=== PATIENT | female | born 1935 | race Caucasian/White ===

== ENCOUNTER 2016-06-26 11:44 | Inpatient (IN) | payer OTHER, BC ==
[2016-06-26 11:49] VITALS: BMI 25.0
--- NOTE | 2016-06-26 12:06 | PDOC ---
History of Present Illness <Paolo Lyn - Last Filed: 06/26/16 15:08> - History of Present Illness Initial Comments: 06/26/16 15:52 Chief complaint: Nausea and vomiting History of present illness: Patient has had a mild URI for several days, yesterday began to feel nauseated and vomited last night, continuing this morning. No diarrhea. Normal bowel movement yesterday. No hematemesis melena or bloody stool. Review of systems: No chest pain, shortness of breath, abdominal pain, diarrhea , hematemesis, melena, bloody stool, visual or focal neurologic symptoms, lightheadedness, dizziness, vertigo, visual or focal neurologic symptoms, unsteadiness of gait. She does admit "a sour taste" in her mouth. Past medical history: Mild hypertension maintained on atenolol/chlorthalidone. Glaucoma on eye drops. 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 Breast cancer with lumpectomy on the right, chemotherapy and radiation, 8 years ago followed closely without signs of recurrence History of intermittent hyponatremia in the past Social history: Has been mildly depressed since the of her one year ago, but no tobacco alcohol or other [employer] drugs. No pain killers. Lives with family, who care for her well Family history: Reviewed and noncontributory including GI disease, early coronary disease, or cancer. Physical exam: Alert oriented well-developed well-nourished no acute distress cheerful and cooperative Afebrile, vital signs normal No pallor or icterus. PERRLA, fundi benign, ENT clear Neck supple without bruit mass or nodes Lungs clear CV regular without murmur rub or gallop Abdomen nondistended, normal bowel sounds. Soft without masses tenderness organomegaly. No CVAT Neurological C2 to 12 intact. Strength full and symmetric. No focal sensory or motor deficits. Gait stable and unimpaired Skin clear, no rash, adequate turgor and what mucous membranes Extremities no CCE Impression: Probable viral gastroenteritis, rule out dehydration, electrolyte abnormality. Plan: CBC chemistries intravenous fluid Zofran for nausea Protonix for dyspepsia. Further medical evaluation depending on results <Yannick Walden - Last Filed: 06/26/16 15:58> - General Chief Complaint: Nausea/Vomiting Stated Complaint: weak,vomit,cold symptoms Time Seen by Provider: 06/26/16 12:04 Past History <Paolo Lyn - Last Filed: 06/26/16 15:08> - Past Medical History Anemia: No Asthma: No Cancer: Yes (RT BREAST) Cardiac Disorders: No CVA: No COPD: No CHF: No Dementia: No Diabetes: No GI Disorders: Yes (STOMACH CA, DIVERTICULOSIS HX HPYLORI) Disorders: No HTN: Yes Hypercholesterolemia: Yes Liver Disease: No Seizures: No Thyroid Disease: No - Surgical History Abdominal Surgery: Yes - Psycho/Social/Smoking Cessation Hx Anxiety: No Suicidal Ideation: No Smoking Status: No Smoking History: Unknown if ever smoked Have you smoked in the past 12 months: No Number of Cigarettes Smoked Daily: 0 Information on smoking cessation initiated: No Hx Alcohol Use: No Drug/Substance Use Hx: No Substance Use Type: None Hx Substance Use Treatment: No <Yannick Walden - Last Filed: 06/26/16 15:58> - Past Medical History Allergies/Adverse Reactions: Allergies Allergy/AdvReac Type Severity Reaction Status Date / Time No Known Allergies Allergy Verified 06/26/16 11:45 Home Medications: Ambulatory Orders Aspirin Coated [Ecotrin -] 81 mg PO DAILY 09/05/13 Atenolol/Chlorthalidone [Tenoretic 50/25 Tablet] 1 each PO DAILY 09/05/13 Cholecalciferol (Vitamin D3) [Vitamin D3] 1,000 unit PO DAILY 09/05/13 Multivit-Min/FA/Lycopene/Lut [Centrum Silver Tablet] 1 each PO DAILY 09/05/13 Potassium Citrate 10 meq PO DAILY 11/06/14 Timolol [Betimol] 10 ml OP DAILY 11/06/14 *Physical Exam - Vital Signs Last Vital Signs Temp Pulse Resp BP Pulse Ox 98.4 F 60 20 133/65 100 06/26/16 13:13 06/26/16 13:13 06/26/16 13:13 06/26/16 13:13 06/26/16 13:13 <Paolo Lyn - Last Filed: 06/26/16 15:08> - Vital Signs Last Vital Signs Temp Pulse Resp BP Pulse Ox 98.4 F 62 20 159/68 100 06/26/16 11:45 06/26/16 11:45 06/26/16 11:45 06/26/16 11:45 06/26/16 11:45 <Yannick Walden - Last Filed: 06/26/16 15:58> ED Treatment Course - LABORATORY CBC & Chemistry Diagram: 06/26/16 12:34 06/26/16 12:34 - ADDITIONAL ORDERS Additional order review: Laboratory Results 06/26/16 06/26/16 06/26/16 14:23 12:34 12:34 INR Sodium 118 L* Potassium 2.6 L* D Chloride 81 L Carbon Dioxide 24 Anion Gap 13 BUN 13 Creatinine 0.6 Creat Clearance w eGFR > 60 Random Glucose 233 H D Calcium 8.4 Total Bilirubin 0.8 AST 22 ALT 17 Alkaline Phosphatase 52 Creatine Kinase 64 Troponin I < 0.03 L Total Protein 6.8 Albumin 3.5 Urine Color Yellow Urine Appearance Clear Urine pH 7.5 Ur Specific [place] 1.015 Urine Protein Negative Urine Glucose (UA) 1+ H Urine Ketones 1+ H Urine Blood Trace H Urine Nitrite Negative Urine Bilirubin Negative Urine Urobilinogen 0.2 e.u/dl Ur Leukocyte Esterase Negative 06/26/16 12:34 INR 1.13 Sodium Potassium Chloride Carbon Dioxide Anion Gap BUN Creatinine Creat Clearance w eGFR Random Glucose Calcium Total Bilirubin AST ALT Alkaline Phosphatase Creatine Kinase Troponin I Total Protein Albumin Urine Color Urine Appearance Urine pH Ur Specific [place] Urine Protein Urine Glucose (UA) Urine Ketones Urine Blood Urine Nitrite Urine Bilirubin Urine Urobilinogen Ur Leukocyte Esterase 06/26/16 12:34 RBC 4.58 D MCV 82.7 MCHC 33.9 RDW 14.6 MPV 9.4 D Neutrophils % 74.7 D Lymphocytes % 17.7 D Monocytes % 7.1 Eosinophils % 0.2 Basophils % 0.3 - Medications Given in the ED: ED Medications Discontinued Medications Generic Name Dose Route Start Last Admin Trade Name Freq PRN Reason Stop Dose Admin Sodium Chloride 1,000 mls @ 1,000 mls/hr 06/26/16 13:09 06/26/16 13:12 Normal Saline - IV 06/26/16 14:08 1,000 mls/hr ASDIR STA Administration Ondansetron HCl 4 mg 06/26/16 12:45 06/26/16 12:49 Zofran Injection IVPUSH 06/26/16 12:46 4 mg NOW ONE Administration <Paolo Lyn - Last Filed: 06/26/16 15:08> - LABORATORY CBC & Chemistry Diagram: 06/26/16 12:34 06/26/16 12:34 <Yannick Walden - Last Filed: 06/26/16 15:58> Medical Decision Making - Medical Decision Making 06/26/16 15:08 Dr. Tan Gomes was consulted regarding the patient at 2:57pm [phone] <Paolo Lyn - Last Filed: 06/26/16 15:08> - Medical Decision Making 06/26/16 14:54 Sodium 118, potassium 2.6. Electrolyte abnormalities most likely due to acute illness, vomiting, decreased fluid intake, and chronic diuretic therapy. Dr. Justin Chacon contacted by phone. Case discussed, as well as laboratory abnormalities. She will admit patient for further intravenous therapy and monitoring Attempts to contact traditional maori health practitioner for consultation in progress 06/26/16 15:57 Dr Gomes, renal consult, was contacted. Case was discussed, labs were reviewed, will see the patient in consultation tonight. <Yannick Walden - Last Filed: 06/26/16 15:58> *DC/Admit/Observation/Transfer <Paolo Lyn - Last Filed: 06/26/16 15:08> - Discharge Dispostion Admit: Yes <Yannick Walden - Last Filed: 06/26/16 15:58> Diagnosis at time of Disposition: Hyponatremia, Hypokalemia
[2016-06-26] MEDS ORDERED: ONDANSETRON 4 MG/2 ML VIAL IVPUSH ONE (12:45)
[2016-06-26] MEDS ORDERED: ONDANSETRON 4 MG/2 ML VIAL ONE (12:49)
[2016-06-26 12:59] LABS: INR 1.13 (0.82-1.09); PROTHROMBIN TIME (PATIENT) 12.6 SEC (10.2-13.0)
[2016-06-26 13:04] LABS: ALBUMIN 3.5 g/dl (3.5-5.0); ALK PHOS 52 U/L (32-92); ANION GAP 13 (8-16); BILIRUBIN,TOTAL 0.8 mg/dl (0.2-1.0); CALCIUM 8.4 mg/dl (8.4-10.2); CO2 24 mmol/L (22-28); CPK(DFH) 64 IU/L (26-140); CREATININE 0.6 mg/dl (0.6-1.3); GLUCOSE,RANDOM 233 mg/dl (74-106); SGOT/AST 22 U/L (10-42); SGPT/ALT 17 U/L (10-40); TOT PROT 6.8 g/dl (6.4-8.3)
[2016-06-26] MEDS ORDERED: SODIUM CHLORIDE 1,000 ML IV STA (13:09)
[2016-06-26] MEDS ORDERED: KCL 10 MEQ IVPB 100 ML IVPB SCH (13:15)
[2016-06-26] MEDS ORDERED: KCL 10 MEQ IVPB 200 ML IVPB ONE (13:17)
[2016-06-26 13:28] LABS: BASOPHIL 0.3 % (0-2.0); EOSINOPHIL 0.2 % (0-4.5); MCHC 33.9 g/dl (32.0-36.0); MEAN CELL VOLUME 82.7 fl (80-96); MEAN PLT VOLUME 9.4 fl (7.5-11.1); NEUTROPHILS 74.7 % (42.8-82.8); PLATELET COUNT 129 K/MM3 (134-434); RDW 14.6 % (11.6-15.6); TROPONIN I (DFP) < 0.03 ng/ml (0.03-0.50); WHITE BLOOD COUNT 5.3 K/mm3 (4.0-10.0)
[2016-06-26 14:30] LABS: PH,URINE 7.5 (4.5-8); URINE APPEARANCE Clear; URINE BILIRUBIN Negative (NEGATIVE); URINE BLOOD TRACE (NEGATIVE); URINE COLOR YELLOW; URINE GLUCOSE (UA) 1+ (NEGATIVE); URINE KETONE 1+ (NEGATIVE); URINE LEUK ESTERASE Negative (NEGATIVE); URINE NITRITE Negative (NEGATIVE); URINE PROTEIN Negative (NEGATIVE); URINE UROBILINOGEN 0.2 E.U/dl (0.2-1.0)
[2016-06-26] MEDS ORDERED: PANTOPRAZOLE SODIUM 40 MG in SODIUM CHLORIDE 100 ML IVPB ONE (14:40)
[2016-06-26] MEDS ORDERED: PANTOPRAZOLE SODIUM 40 MG VIAL ONE (15:31)
[2016-06-26 15:55] LABS: URINE WBC 0-2 (3-5)
[2016-06-26] MEDS ORDERED: SODIUM BICARBONATE 2.4 MEQ/5 ML SDVIAL ONE (16:24)
[2016-06-26] MEDS ORDERED: POTASSIUM CHLORIDE ORAL LIQUID 20 MEQ/15 ML PO ONE (16:42)
--- NOTE | 2016-06-26 16:50 | CONSULT ---
Consult - text type - Consultation Consultation Note: Renal Consult for Hyponatremia. This is a 80 year old woman with PMhx of Breast Ca s/p lumpectomy, Gastric Ca s/ p partial gastrectomy, Hypertension who presented with complaints of weakness, dizziness, elevated BP with N/V and found to have Na of 118 and K of 2.6. Pt started experiencing sympotms yesterday and took additional BP meds. Drank about 1L of water yesterday. Was on Amlodipine-Chlorthalidone at home. No confuison, lethargy, weakness, seizures. PMhx: as above Allergies: NKDA Family hx: NC Social Hx: NO T/A/D ROS: as per HPI Home Meds: Home Medications Medication Instructions Recorded Aspirin Coated [Ecotrin -] 81 mg PO DAILY 09/05/13 Atenolol/Chlorthalidone [Tenoretic 1 each PO DAILY 09/05/13 50/25 Tablet] Cholecalciferol (Vitamin D3) 1,000 unit PO DAILY 09/05/13 [Vitamin D3] Multivit-Min/FA/Lycopene/Lut 1 each PO DAILY 09/05/13 [Centrum Silver Tablet] Potassium Citrate 10 meq PO DAILY 11/06/14 Timolol [Betimol] 10 ml OP DAILY 11/06/14 Vital Signs Temperature 98.4 F 06/26/16 13:13 Pulse Rate 60 06/26/16 13:13 Respiratory Rate 20 06/26/16 13:13 Blood Pressure 133/65 06/26/16 13:13 O2 Sat by Pulse Oximetry (%) 100 06/26/16 13:13 Gen: NAD, awake and alert. HEENT: NC/AT, MMM, No JVD, Neck Supple CVS: RRR, No M/R Lungs: CTA, No Rales or wheeze Abd: soft NT/ND Ext: No edema, clubbing or cyanosis : No bladder distension CBC, BMP 06/26/16 12:34 06/26/16 12:34 Current Medications Potassium Chloride (Potassium Chloride Oral Liquid) 40 meq PO ONCE ONE Stop: 06/26/16 16:43 A/P 80 year old woman with PMhx of Breast Ca s/p lumpectomy, Gastric Ca s/p partial gastrectomy, Hypertension who presented with complaints of weakness, dizziness, elevated BP with N/V and found to have Na of 118 and K of 2.6. #Hyponatremia Likely related to Thiazide like diuretic + Nausea however need to r/o SIADH given Ca history Check Urine OSM, Urine Na, Serum OSM, Uric Acid, TSH, AM Cortisol s/p 1`L of NS in the ED Repeat BMP now to access for improvement in Na Goal rate of correction is 8 in 24 hours Free water restriction of 1L daily No indication for 3% saline #Hypokalemia from diuretic +/- GI losses s/p KCL 10meq IV in the ED Give KCL 40 PO x 1 Repeat K Goal K ~4 Check Mg levels #Nausea/Vomiting ? related to hyponatremia vs. primary Gi issue monitor symptoms zofran PRN #Hypertension BP ok now keep off diuretics at this time goal BP < 150/90 Thank you for this referral Will follow Tan Gomes DO
[2016-06-26 18:49] LABS: ALBUMIN 3.2 g/dl (3.5-5.0); ALK PHOS 47 U/L (32-92); ANION GAP 12 (8-16); BILIRUBIN,TOTAL 0.5 mg/dl (0.2-1.0); CALCIUM 7.9 mg/dl (8.4-10.2); CO2 22 mmol/L (22-28); CREATININE 0.5 mg/dl (0.6-1.3); GLUCOSE,RANDOM 242 mg/dl (74-106); MAGNESIUM 1.3 mg/dL (1.8-2.4); SGOT/AST 26 U/L (10-42); SGPT/ALT 15 U/L (10-40); TOT PROT 6.2 g/dl (6.4-8.3); URIC ACID 3.4 mg/dl (2.6-7.2)
[2016-06-26] MEDS ORDERED: diphenhydrAMINE HCL 25 MG CAPSULE (FP) PO PRN (19:22)
[2016-06-26] MEDS ORDERED: ONDANSETRON 4 MG/2 ML VIAL IVPB PRN (19:22)
[2016-06-26] MEDS ORDERED: ACETAMINOPHEN 325 MG TABLET (FP) PO PRN (19:22)
[2016-06-26] MEDS ORDERED: SODIUM CHLORIDE 1,000 ML IV SCH (20:15)
[2016-06-26 20:25] LABS: AMYLASE 41 U/L (25-125)
[2016-06-26] MEDS ORDERED: SODIUM CHLORIDE 1,000 ML with POTASSIUM CHLORIDE 20 MEQ IV SCH (20:30)
[2016-06-26 20:35] LABS: OSMOLALITY,SERUM 260 mosm/kg (278-305)
[2016-06-26] MEDS: HEPARIN NA (PORCINE) 5,000 UNITS/ML 1ML VIAL SQ SCH (22:33)
[2016-06-26] MEDS: PANTOPRAZOLE 40 MG TABLET (FP) PO SCH (22:33)
--- NOTE | 2016-06-26 22:36 | HP ---
Admitting History and Physical - Admission Chief Complaint: Weak and lightheaded post N and V x 2 onset 1 day pre admission History of Present Illness: Daughter at bedside asiisting as intermittent stucco mason ; 80 F w Hx Mild Htn reports on day pre admission was not feeling well and noticed BP a little hi ( has monitor). She had some stomache discomfort followed w Nausea and 2 episodes of vomiting. She decided to come to ED for treatment. In ED pts Vitals were Benign but Na was 188 and K+ 2.6. Her K was suplemented. She has been admitted to [facility] for wkup and management. History Source: Patient, Family Member Limitations to Obtaining History: No Limitations - Past Medical History Cardiovascular: Yes: HTN ...LMP Comment: 80 YEAR OLD ...: No Heme/Onc: Yes: Other (R Breast cancer Post Lumpectomy Chemo and Radio 2006; Stomache cancer post partial gastrectomy 2011.) ENT: Yes: Other (Hard of Hearing) Additional Past Medical History: Hyponatremia Episode in 2014 - admitted and treated w NEG wkup. - Past Surgical History Additional Past Surgical History: Rt Lumpectomy; Partial Gastrectomy ; T&A ; CS x 2 - Advance Directives Advance Directives: Yes: Health Care Proxy - Smoking History Smoking history: Unknown if ever smoked Have you smoked in the past 12 months: No Aproximately how many cigarettes per day: 0 - Alcohol/Substance Use Hx Alcohol Use: No Home Medications - Allergies Allergies/Adverse Reactions: Allergies Allergy/AdvReac Type Severity Reaction Status Date / Time No Known Allergies Allergy Verified 06/26/16 11:45 - Home Medications Home Medications: Ambulatory Orders Aspirin Coated [Ecotrin -] 81 mg PO DAILY 09/05/13 Atenolol/Chlorthalidone [Tenoretic 50/25 Tablet] 1 each PO DAILY 09/05/13 Cholecalciferol (Vitamin D3) [Vitamin D3] 1,000 unit PO DAILY 09/05/13 Multivit-Min/FA/Lycopene/Lut [Centrum Silver Tablet] 1 each PO DAILY 09/05/13 Potassium Citrate 10 meq PO DAILY 11/06/14 Timolol [Betimol] 10 ml OP DAILY 11/06/14 Review of Systems Findings/Remarks: SEE HPI Physical Examination Vital Signs: Vital Signs Temperature 98.1 F 06/26/16 18:19 Pulse Rate 53 L 06/26/16 18:19 Respiratory Rate 17 06/26/16 18:19 Blood Pressure 108/64 06/26/16 18:19 O2 Sat by Pulse Oximetry (%) 99 06/26/16 18:19 Constitutional: Yes: No Distress, Calm HENT: Yes: Other (Speaking in LOUD Tones) Neck: Yes: WNL, Supple Cardiovascular: Yes: Regular Rate and Rhythm, Bruit (no), JVD (no), Murmur ( mild 2/6 Base no rad) Respiratory: Yes: Regular, CTA Bilaterally Gastrointestinal: Yes: Normal Bowel Sounds, Soft, Abdomen, Obese, Tenderness ( NONE) ...Rectal Exam: Yes: Deferred Extremities: Yes: WNL Edema: No Peripheral Pulses: Left Doralis Pedis: 2+, Right Dorsalis Pedis: 2+ Integumentary: Yes: WNL Neurological: Yes: WNL, Alert, Oriented, Other (anastasiya conversive) Psychiatric: Yes: Alert, Oriented Labs: Laboratory Last Values WBC 5.3 K/mm3 (4.0-10.0) 06/26/16 12:34 RBC 4.58 M/mm3 (3.60-5.2) D 06/26/16 12:34 Hgb 12.8 GM/dL (10.7-15.3) D 06/26/16 12:34 Hct 37.8 % (32.4-45.2) D 06/26/16 12:34 MCV 82.7 fl (80-96) 06/26/16 12:34 MCHC 33.9 g/dl (32.0-36.0) 06/26/16 12:34 RDW 14.6 % (11.6-15.6) 06/26/16 12:34 Plt Count 129 K/MM3 (134-434) L D 06/26/16 12:34 MPV 9.4 fl (7.5-11.1) D 06/26/16 12:34 Neutrophils % 74.7 % (42.8-82.8) D 06/26/16 12:34 Lymphocytes % 17.7 % (8-40) D 06/26/16 12:34 Monocytes % 7.1 % (3.8-10.2) 06/26/16 12:34 Eosinophils % 0.2 % (0-4.5) 06/26/16 12:34 Basophils % 0.3 % (0-2.0) 06/26/16 12:34 INR 1.13 (0.82-1.09) 06/26/16 12:34 Sodium 119 mmol/L (136-145) L* 06/26/16 18:04 Potassium 3.7 mmol/L (3.5-5.1) D 06/26/16 18:04 Chloride 85 mmol/L (98-107) L 06/26/16 18:04 Carbon Dioxide 22 mmol/L (22-28) 06/26/16 18:04 Anion Gap 12 (8-16) 06/26/16 18:04 BUN 10 mg/dl (7-18) D 06/26/16 18:04 Creatinine 0.5 mg/dl (0.6-1.3) L 06/26/16 18:04 Creat Clearance w eGFR > 60 (>60) 06/26/16 18:04 Random Glucose 242 mg/dl (74-106) H 06/26/16 18:04 Serum Osmolality 260 mosm/kg (278-305) L 06/26/16 18:04 Uric Acid 3.4 mg/dl (2.6-7.2) D 06/26/16 18:04 Calcium 7.9 mg/dl (8.4-10.2) L 06/26/16 18:04 Magnesium 1.3 mg/dL (1.8-2.4) L D 06/26/16 18:04 Total Bilirubin 0.5 mg/dl (0.2-1.0) D 06/26/16 18:04 AST 26 U/L (10-42) 06/26/16 18:04 ALT 15 U/L (10-40) 06/26/16 18:04 Alkaline Phosphatase 47 U/L (32-92) 06/26/16 18:04 Creatine Kinase 64 IU/L (26-140) 06/26/16 12:34 Troponin I < 0.03 ng/ml (0.03-0.50) L 06/26/16 12:34 Total Protein 6.2 g/dl (6.4-8.3) L 06/26/16 18:04 Albumin 3.2 g/dl (3.5-5.0) L 06/26/16 18:04 Total Amylase 41 U/L (25-125) 06/26/16 18:04 Urine Color Yellow 06/26/16 14:23 Urine Appearance Clear 06/26/16 14:23 Urine pH 7.5 (4.5-8) 06/26/16 14:23 Ur Specific [place] 1.015 (1.005-1.025) 06/26/16 14:23 Urine Protein Negative (NEGATIVE) 06/26/16 14:23 Urine Glucose (UA) 1+ (NEGATIVE) H 06/26/16 14:23 Urine Ketones 1+ (NEGATIVE) H 06/26/16 14:23 Urine Blood Trace (NEGATIVE) H 06/26/16 14:23 Urine Nitrite Negative (NEGATIVE) 06/26/16 14:23 Urine Bilirubin Negative (NEGATIVE) 06/26/16 14:23 Urine Urobilinogen 0.2 e.u/dl (0.2-1.0) 06/26/16 14:23 Ur Leukocyte Esterase Negative (NEGATIVE) 06/26/16 14:23 Urine RBC 5-8 /hpf (0-3) 06/26/16 14:23 Urine WBC 0-2 (3-5) 06/26/16 14:23 Ur Epithelial Cells 0-3 /HPF 06/26/16 14:23 Ur Random Sodium 45 MMOL/L 06/26/16 21:30 Imaging - Results Chest X-ray: Report Reviewed (CM no infilt) Problem List - Problems (1) Hypokalemia Assessment/Plan: Pt ON Diuretic tho also on K supplement. Unclear Etiology. NO LGI SXS. Improved post supplement. will cont t supplement po. Renal consult requested. Code(s): E87.6 - HYPOKALEMIA (2) Hyponatremia Assessment/Plan: + Hx in past (as per dtr 2014 112?? w NREG wkup). Pt vomited only twice. Not on ssris; does not appear to be iatrogenic. Renal consult requested and on board. Anticipate DC home once Hyponatremia has Improved. Defer to Renal. Code(s): E87.1 - HYPO-OSMOLALITY AND HYPONATREMIA (3) Essential hypertension Assessment/Plan: pt reported bein hi at home. Dtr reports it tends to do so in festive occasions () bc pt still in Bre[place] of spous (~1year). No evidence unstable BP with us. Cont pre admission meds (Atenolol) w/o diuretic (Chlorthalidone) ( combo drug) Code(s): I10 - ESSENTIAL (PRIMARY) HYPERTENSION (4) Hard of hearing Assessment/Plan: chronic history. Code(s): H91.90 - UNSPECIFIED HEARING LOSS, UNSPECIFIED EAR
[2016-06-27 09:13] LABS: ALBUMIN 3.5 g/dl (3.5-5.0); ALK PHOS 47 U/L (32-92); ANION GAP 10 (8-16); BILIRUBIN,TOTAL 0.4 mg/dl (0.2-1.0); CALCIUM 8.8 mg/dl (8.4-10.2); CO2 26 mmol/L (22-28); CREATININE 0.8 mg/dl (0.6-1.3); GLUCOSE,RANDOM 209 mg/dl (74-106); SGOT/AST 24 U/L (10-42); SGPT/ALT 15 U/L (10-40); TOT PROT 6.8 g/dl (6.4-8.3)
--- NOTE | 2016-06-27 09:32 | PN ---
Progress Note (short form) - Note Progress Note: Renal Follow up for Hyponatremia Pt seen and examined at the bedside + runny nose. no further N/V No sob, chest pain no lethargy, weakness on IVF Vital Signs Temperature 98.2 F 06/27/16 06:27 Pulse Rate 58 L 06/27/16 06:27 Respiratory Rate 19 06/27/16 06:27 Blood Pressure 110/54 06/27/16 06:27 O2 Sat by Pulse Oximetry (%) 99 06/26/16 18:19 Intake & Output 06/24/16 06/25/16 06/26/16 06/27/16 23:59 23:59 23:59 23:59 Intake Total 120 Output Total 1000 Balance 120 -1000 Weight 137 lb Gen: NAD, awake and alert. HEENT: NC/AT, MMM, No JVD, Neck Supple CVS: RRR, No M/R Lungs: CTA, No Rales or wheeze Abd: soft NT/ND Ext: No edema, clubbing or cyanosis : No bladder distension CBC, BMP 06/26/16 12:34 06/27/16 08:28 Current Medications Acetaminophen (Tylenol -) 650 mg PO Q4H PRN PRN Reason: FEVER OR PAIN Aspirin (Ecotrin -) 81 mg PO DAILY [facility] Atenolol (Tenormin -) 50 mg PO DAILY [facility] Diphenhydramine HCl (Benadryl -) 25 mg PO HS PRN PRN Reason: INSOMNIA Heparin Sodium (Porcine) (Heparin -) 5,000 unit SQ BID [facility] Last Admin: 06/26/16 22:33 Dose: 5,000 unit Potassium Chloride 20 meq/ (Sodium Chloride) 1,010 mls @ 83 mls/hr IV Q12H [facility] Last Admin: 06/26/16 22:33 Dose: 83 mls/hr Ondansetron HCl (Zofran Injection) 4 mg IVPB Q4H PRN PRN Reason: NAUSEA Pantoprazole Sodium (Protonix -) 40 mg PO BID [facility] Last Admin: 06/26/16 22:33 Dose: 40 mg Potassium Citrate/Citric Acid (Cytra-K -) 20 meq PO DAILY [facility] Timolol Maleate (Timoptic 0.5%) 1 drop OU DAILY [facility] Potassium Chloride (Potassium Chloride Oral Liquid) 40 meq PO ONCE ONE Stop: 06/26/16 16:43 A/P 80 year old woman with PMhx of Breast Ca s/p lumpectomy, Gastric Ca s/p partial gastrectomy, Hypertension who presented with complaints of weakness, dizziness, elevated BP with N/V and found to have Na of 118 and K of 2.6. #Hypo-osmolar Hyponatremia Likely related to Thiazide like diuretic + Nausea Urine studies show high urine Na that is most likely related to diuretic use todays labs pending continue NS with KCL for now will titrate based on repeat Na levels goal is correction ~8 in 24 hours continue free water restriction #Hypokalemia from diuretic +/- GI losses Trend daily Trend Mg #Hypertension BP at goal on atenolol Tan Gomes DO
[2016-06-27] MEDS ORDERED: SODIUM CHLORIDE 1,000 ML with POTASSIUM CHLORIDE 20 MEQ IV SCH (09:35)
[2016-06-27] MEDS ORDERED: MAGNESIUM SULF 50% (8.12 MEQ/2 ML-1 GM VIAL) ONE (09:58)
[2016-06-27] MEDS ORDERED: POTASSIUM CHLORIDE TABS 10 MEQ TABLET.ER (FP) PO SCH (10:00)
[2016-06-27] MEDS ORDERED: POTASSIUM CITRATE/CITRIC ACID 2 MEQ/ML ML PO SCH (10:00)
[2016-06-27] MEDS: ATENOLOL 50 MG TABLET (FP) PO SCH (10:04)
[2016-06-27] MEDS: PANTOPRAZOLE 40 MG TABLET (FP) PO SCH ×2 (10:04→22:10)
[2016-06-27] MEDS: ASPIRIN COATED 81 MG TABLET.EC PO SCH (10:05)
[2016-06-27] MEDS: MAGNESIUM SULF 50% (8.12 MEQ/2 ML-1 GM VIAL) IVPB SCH ×2 (10:05→11:28)
[2016-06-27] MEDS: HEPARIN NA (PORCINE) 5,000 UNITS/ML 1ML VIAL SQ SCH ×2 (10:05→22:10)
[2016-06-27] MEDS ORDERED: PT OWN MED DRAWER 7, Y5N ONE (10:12)
[2016-06-27] MEDS: TIMOLOL 0.5% OPHTHALMIC SOL 5 ML BOTTLE OU SCH (10:14)
[2016-06-27 12:40] LABS: THYROID STIMULATING HORMONE 2.33 uIU/ml (0.358-3.74)
--- NOTE | 2016-06-27 16:21 | EKG ---
Test Reason : Blood Pressure : / mmHG Vent. Rate : 059 BPM Atrial Rate : 059 BPM P-R Int : 154 ms QRS Dur : 090 ms QT Int : 500 ms P-R-T Axes : 065 063 069 degrees QTc Int : 495 ms SINUS BRADYCARDIA POSSIBLE LEFT ATRIAL ENLARGEMENT NONSPECIFIC ST AND T WAVE ABNORMALITY PROLONGED QT WHEN COMPARED WITH ECG OF 29-APR-2012 14:01, NONSPECIFIC T WAVE ABNORMALITY NO LONGER EVIDENT IN INFERIOR LEADS NONSPECIFIC T WAVE ABNORMALITY NOW EVIDENT IN LATERAL LEADS Confirmed by MD SHARONA, AUGUSTINA ([id number]) on 06/27/2016 4:21:06 PM Referred By: CALOS REAGAN Confirmed By:AUGUSTINA TABOR MD
[2016-06-27 16:43] LABS: CALCIUM 7.6 mg/dl (8.4-10.2); CREATININE 0.8 mg/dl (0.6-1.3); MAGNESIUM 2.5 mg/dL (1.8-2.4)
[2016-06-27 22:20] VITALS: BP 108/51; PULSE 76; TEMP 98.4
--- NOTE | 2016-06-27 23:21 | PN ---
Progress Note, Physician Chief Complaint: no complaints, eager to go home. - Current Medication List Current Medications: Active Medications Acetaminophen (Tylenol -) 650 mg PO Q4H PRN PRN Reason: FEVER OR PAIN Aspirin (Ecotrin -) 81 mg PO DAILY [facility] Last Admin: 06/27/16 10:05 Dose: 81 mg Atenolol (Tenormin -) 50 mg PO DAILY [facility] Last Admin: 06/27/16 10:04 Dose: 50 mg Diphenhydramine HCl (Benadryl -) 25 mg PO HS PRN PRN Reason: INSOMNIA Heparin Sodium (Porcine) (Heparin -) 5,000 unit SQ BID [facility] Last Admin: 06/27/16 22:10 Dose: 5,000 unit Ondansetron HCl (Zofran Injection) 4 mg IVPB Q4H PRN PRN Reason: NAUSEA Pantoprazole Sodium (Protonix -) 40 mg PO BID [facility] Last Admin: 06/27/16 22:10 Dose: 40 mg Timolol Maleate (Timoptic 0.5%) 1 drop OU DAILY [facility] Last Admin: 06/27/16 10:14 Dose: 1 drop - Objective Vital Signs: Vital Signs Temperature 98.4 F 06/27/16 23:00 Pulse Rate 76 06/27/16 23:00 Respiratory Rate 20 06/27/16 23:00 Blood Pressure 108/51 06/27/16 23:00 O2 Sat by Pulse Oximetry (%) 100 06/27/16 20:39 Constitutional: Yes: No Distress, Calm Neck: Yes: Supple Cardiovascular: Yes: WNL Respiratory: Yes: WNL Gastrointestinal: Yes: Normal Bowel Sounds ...Rectal Exam: Yes: Deferred Musculoskeletal: Yes: WNL Edema: No Psychiatric: Yes: Alert, Oriented Labs: CBC, BMP 06/27/16 16:10 INR, PTT INR 1.13 (0.82-1.09) 06/26/16 12:34 Problem List - Problems (1) Hypokalemia Assessment/Plan: resolved pt will not be on diuretic therfores does NO need at pa home Code(s): E87.6 - HYPOKALEMIA (2) Hyponatremia Assessment/Plan: resolved Code(s): E87.1 - HYPO-OSMOLALITY AND HYPONATREMIA (3) Essential hypertension Assessment/Plan: stable Code(s): I10 - ESSENTIAL (PRIMARY) HYPERTENSION (4) Hard of hearing Assessment/Plan: chronic history. Code(s): H91.90 - UNSPECIFIED HEARING LOSS, UNSPECIFIED EAR
[2016-06-28 08:29] LABS: ALBUMIN 3.4 g/dl (3.5-5.0); ALK PHOS 51 U/L (32-92); ANION GAP 8 (8-16); BILIRUBIN,TOTAL 0.4 mg/dl (0.2-1.0); CALCIUM 8.8 mg/dl (8.4-10.2); CO2 29 mmol/L (22-28); CREATININE 0.8 mg/dl (0.6-1.3); GLUCOSE,RANDOM 140 mg/dl (74-106); SGOT/AST 23 U/L (10-42); SGPT/ALT 14 U/L (10-40); TOT PROT 6.5 g/dl (6.4-8.3)
--- NOTE | 2016-06-28 09:46 | PN ---
Progress Note (short form) - Note Progress Note: Renal Follow up for Hyponatremia Pt seen and examined at the bedside no N/V off IVF no chest pain, sob, abd pain Vital Signs Temperature 98.4 F 06/27/16 23:00 Pulse Rate 76 06/27/16 23:00 Respiratory Rate 20 06/27/16 23:00 Blood Pressure 108/51 06/27/16 23:00 O2 Sat by Pulse Oximetry (%) 100 06/27/16 20:39 Intake & Output 06/25/16 06/26/16 06/27/16 06/28/16 23:59 23:59 23:59 23:59 Intake Total 120 800 Output Total 1000 Balance 120 -200 Weight 137 lb Gen: NAD, awake and alert. HEENT: MMM CVS: RRR, No M/R Lungs: CTA, No Rales or wheeze Abd: soft NT/ND Ext: No edema, clubbing or cyanosis CBC, BMP 06/26/16 12:34 06/28/16 08:00 Current Medications Acetaminophen (Tylenol -) 650 mg PO Q4H PRN PRN Reason: FEVER OR PAIN Aspirin (Ecotrin -) 81 mg PO DAILY [facility] Last Admin: 06/27/16 10:05 Dose: 81 mg Atenolol (Tenormin -) 50 mg PO DAILY [facility] Last Admin: 06/27/16 10:04 Dose: 50 mg Diphenhydramine HCl (Benadryl -) 25 mg PO HS PRN PRN Reason: INSOMNIA Heparin Sodium (Porcine) (Heparin -) 5,000 unit SQ BID [facility] Last Admin: 06/27/16 22:10 Dose: 5,000 unit Ondansetron HCl (Zofran Injection) 4 mg IVPB Q4H PRN PRN Reason: NAUSEA Pantoprazole Sodium (Protonix -) 40 mg PO BID [facility] Last Admin: 06/27/16 22:10 Dose: 40 mg Timolol Maleate (Timoptic 0.5%) 1 drop OU DAILY [facility] Last Admin: 06/27/16 10:14 Dose: 1 drop A/P 80 year old woman with PMhx of Breast Ca s/p lumpectomy, Gastric Ca s/p partial gastrectomy, Hypertension who presented with complaints of weakness, dizziness, elevated BP with N/V and found to have Na of 118 and K of 2.6. #Hypo-osmolar Hyponatremia Likely related to Thiazide like diuretic + Nausea Serum Na now improved to normal limits should not resume Chlorthalidone when she gets back home, can take Atenolol by it self for BP control Regular diet at home Have repeat labs done in 5-7 days our office contact information provided for follow up #Hypokalemia no resolved #Hypertension BP at goal on atenolol Follow up as outpatient Tan Gomes DO
[2016-06-28] MEDS: ASPIRIN COATED 81 MG TABLET.EC PO SCH (10:03)
[2016-06-28] MEDS: ATENOLOL 50 MG TABLET (FP) PO SCH (10:03)
[2016-06-28] MEDS: TIMOLOL 0.5% OPHTHALMIC SOL 5 ML BOTTLE OU SCH (10:03)
[2016-06-28] MEDS: PANTOPRAZOLE 40 MG TABLET (FP) PO SCH (10:03)
[2016-06-28] MEDS: HEPARIN NA (PORCINE) 5,000 UNITS/ML 1ML VIAL SQ SCH (10:03)
== END 2016-06-28 01:45 | disposition home or self-care (01) | DRG 641 ==
LOC: FER 11:44 → FM/S 19:18 → OBSVTOIN 19:45 → UNDOADMOB 19:45 → FM/S 19:45 → INTOOBSV 19:45
DX: E87.1 Hypo-osmolality and hyponatremia (principal); E87.6 Hypokalemia; I10 Essential (primary) hypertension; Z85.3 Personal history of malignant neoplasm of breast; Z85.028 Personal history of other malignant neoplasm of stomach; H91.90 Unspecified hearing loss, unspecified ear
CPT/HCPCS: 36415; 71010-TC; 80048; 80053; 81003; 81015; 82150; 82533; 82550; 83735; 83930; 83935; 84300; 84443; 84484; 84550; 85025; 85610; 87086; 93005; 99285-25; G0378; J1644

== ENCOUNTER 2018-07-27 17:34 | Emergency (ER) | payer OTHER, BC ==
[2018-07-27 17:47] VITALS: BMI 24.5
[2018-07-27] MEDS ORDERED: SODIUM CHLORIDE 1,000 ML IV ONE (18:03)
[2018-07-27] MEDS ORDERED: morphine CARPU-JECT 4 MG/1 ML DISP.SYRIN IVPUSH ONE (18:03)
[2018-07-27] MEDS ORDERED: ONDANSETRON 4 MG/2 ML VIAL IVPB ONE (18:03)
[2018-07-27] MEDS ORDERED: ONDANSETRON 4 MG/2 ML VIAL ONE (18:15)
[2018-07-27] MEDS ORDERED: ACETAMINOPHEN 1000 MG/100 ML VIAL (NON FORMULARY) IVPB ONE (18:28)
--- NOTE | 2018-07-27 18:42 | PDOC ---
History of Present Illness - General History Source: Patient, Family, Old Records <Gonzalo Ann - Last Filed: 07/27/18 19:10> - General History Source: Patient, Family Exam Limitations: No Limitations - History of Present Illness Initial Comments: 07/27/18 18:44 The patient is an 82 year old female, with a significant PMH of HTN, HLD, stomach cancer, partial gastrectomy, breast cancer, arthritis, glaucoma, who presents to the emergency department today for evaluation of one day of chills and right sided epigastric abdominal pain with associated nausea. The patient states that for the last couple of days she has not been feeling great and then last night began to experience extreme chills and abdominal pain. The patient went about her normal activities this morning and then her symptoms began to get progressively worse. The patient notes she has had several episodes of the feeling of having to vomit but nothing coming up and an acidic aftertaste. The daughter, at bedside, states that the patient has seemed healthy the last couple of days. The patient denies chest pain, shortness of breath, headache and dizziness. Denies fever, , vomit, diarrhea and constipation. Denies dysuria, frequency, urgency and hematuria. Allergies: NKA Past surgical history: partial gastrectomy at [facility] Social history: Live alone. PCP: Dr. Ho <Jessica Trevizo - Last Filed: 07/27/18 20:52> - General Chief Complaint: Pain Stated Complaint: NAUSEA, VOMITING, ABD, BACK PAIN Time Seen by Provider: 07/27/18 17:54 Past History - Past Medical History Anemia: No Asthma: No Cancer: Yes (RT BREAST) Cardiac Disorders: No CVA: No COPD: No CHF: No Dementia: No Diabetes: No GI Disorders: Yes (STOMACH CA, DIVERTICULOSIS HX HPYLORI) Disorders: No HTN: Yes Hypercholesterolemia: Yes Liver Disease: No Seizures: No Thyroid Disease: No - Surgical History Abdominal Surgery: Yes (PARTIAL GASTRECTOMY) - Suicide/Smoking/Psychosocial Hx Smoking Status: No Smoking History: Never smoked Have you smoked in the past 12 months: No Number of Cigarettes Smoked Daily: 0 Information on smoking cessation initiated: No Hx Alcohol Use: No Drug/Substance Use Hx: No Substance Use Type: None Hx Substance Use Treatment: No <Gonzalo Ann - Last Filed: 07/27/18 19:10> <Jessica Trevizo - Last Filed: 07/27/18 20:52> - Past Medical History Allergies/Adverse Reactions: Allergies Allergy/AdvReac Type Severity Reaction Status Date / Time No Known Allergies Allergy Verified 07/27/18 17:35 Home Medications: Ambulatory Orders Amlodipine Besylate 2.5 mg PO DAILY 07/27/18 Aspirin [Aspirin EC] 81 mg PO DAILY 07/27/18 Cholecalciferol (Vitamin D3) [Vitamin D3 -] 1,000 unit PO DAILY 07/27/18 Dorzolamide HCl/Timolol Maleat [Cosopt Eye Drops] 1 drop OU BID 07/27/18 Metformin HCl [Glucophage] 500 mg PO DAILY 07/27/18 Review of Systems - Review of Systems Constitutional: Yes: Chills. No: Fever Respiratory: No: Shortness of Breath Cardiac (ROS): No: Chest Pain, Syncope ABD/GI: Yes: See HPI, Constipated, Nausea, Vomiting. No: Diarrhea : No: Dysuria, Frequency, Flank Pain Neurological: No: Headache All Other Systems: Reviewed and Negative <Gonzalo Ann - Last Filed: 07/27/18 19:10> *Physical Exam - Vital Signs Last Vital Signs Temp Pulse Resp BP Pulse Ox 98.2 F 77 18 163/53 L 99 07/27/18 17:34 07/27/18 17:34 07/27/18 17:34 07/27/18 17:34 07/27/18 17:34 <Gonzalo Ann - Last Filed: 07/27/18 19:10> - Vital Signs Last Vital Signs Temp Pulse Resp BP Pulse Ox 98.2 F 77 18 163/53 L 99 07/27/18 17:34 07/27/18 17:34 07/27/18 17:34 07/27/18 17:34 07/27/18 17:34 - Physical Exam Comments: 07/27/18 18:44 GENERAL: The patient is awake, alert, and fully oriented, in no acute distress. HEAD: Normal with no signs of trauma. EYES: Pupils equal, round and reactive to light, extraocular movements intact, sclera anicteric, conjunctiva clear with no pallor. ENT: Ears normal, nares patent, oropharynx clear without exudates. Moist mucous membranes. NECK: Normal range of motion, supple without lymphadenopathy, JVD, or masses. LUNGS: Breath sounds equal, clear to auscultation bilaterally. No wheeze/ crackles. HEART: Regular rate and rhythm, normal S1 and S2 without murmur or rub. ABDOMEN: (+)Right upper quadrant tenderness with guarding. Soft, nondistended. BS wnl. No rebound. No palpable masses. No hepatosplenomegaly. No CVA tenderness. EXTREMITIES: Normal range of motion, no edema. No clubbing or cyanosis. No cords, erythema, or tenderness. NEUROLOGICAL: Cranial nerves II through XII grossly intact. Normal speech, normal gait. PSYCH: Normal mood, normal affect. SKIN: Warm, Dry, normal turgor, no rashes or lesions noted. <Jessica Trevizo - Last Filed: 07/27/18 20:52> Moderate Sedation - Procedure Monitoring Vital Signs: Procedure Monitoring Vital Signs Temperature 98.2 F 07/27/18 17:34 Pulse Rate 77 07/27/18 17:34 Respiratory Rate 18 07/27/18 17:34 Blood Pressure 163/53 L 07/27/18 17:34 O2 Sat by Pulse Oximetry (%) 99 07/27/18 17:34 <Gonzalo Ann - Last Filed: 07/27/18 19:10> - Procedure Monitoring Vital Signs: Procedure Monitoring Vital Signs Temperature 98.2 F 07/27/18 17:34 Pulse Rate 77 07/27/18 17:34 Respiratory Rate 18 07/27/18 17:34 Blood Pressure 163/53 L 07/27/18 17:34 O2 Sat by Pulse Oximetry (%) 99 07/27/18 17:34 <Jessica Trevizo - Last Filed: 07/27/18 20:52> Heart Score/ECG Review #1 ECG reviewed & interpreted by me at: 18:08 General ECG Interpretation: Sinus Rhythm, Normal Rate (88), Normal Intervals ( qtc 433), No acute ischemic changes (downsloping ST segments with T wave abnormality inf/lateral leads) Compared to previous ECG there are: No significant change (c/w EKGs from ) <Gonzalo Ann - Last Filed: 07/27/18 19:10> ED Treatment Course - LABORATORY CBC & Chemistry Diagram: 07/27/18 18:45 07/27/18 18:45 <Gonzalo Ann - Last Filed: 07/27/18 19:10> - LABORATORY CBC & Chemistry Diagram: 07/27/18 18:45 07/27/18 18:45 <Jessica Trevizo - Last Filed: 07/27/18 20:52> Medical Decision Making - Critical Care Time Total Critical Care Time (minutes): 30 Critical Care Statement: The care of this patient involved high complexity decision making to prevent further life threatening deterioration of the patient 's condition and/or to evaluate & treat vital organ system(s) failure or risk of failure. - Medical Decision Making 07/27/18 18:25 High functioning 82y/o F with h/o gastric ca s/p resection 2012, breast ca, htn , dm p/w epigastric/RUQ pain with n/v today. Pt at baseline good state of health , was with family and ate corned beef and cabbage yesterday, was well this morning then developed progressive epigastric/RUQ pain with non-bloody emesis and now chills. + flatus and BM since pain began, no urinary complaints. no cardiopulmonary complaints vss, found to have fever on rectal temp warm to touch, alert in nad but chills no jaundice/pallor s1s2 rrr, ctab soft/nd. tender with guarding RUQ, no cvat. no edema, neuro nl 82y/o F with ruq pain/n/v/fever. presentation could be consistent with acute cholecystitis, ? pyelo. surgical history but less likely obstruction. sepsis protocol initated ivf rehydration, anti-pyretic, anti-emetic, pain control RUQ u/s, consider ctap if u/s not definitive admission 07/27/18 19:10 sepsis workup in progress, received meds. u/s pending. abx ordered. signout given, plan to proceed with admission. <Gonzalo Ann - Last Filed: 07/27/18 19:10> - Medical Decision Making 07/27/18 20:[address] Dickens, awaiting call back. <Jessica Trevizo - Last Filed: 07/27/18 20:52> *DC/Admit/Observation/Transfer <Gonzalo Ann - Last Filed: 07/27/18 19:10> - Attestations Scribe Attestion: 07/27/18 18:45 Documentation prepared by Jessica Trevizo, acting as medical examiner for Gonzalo Ann MD. <Jessica Trevizo - Last Filed: 07/27/18 20:52> Diagnosis at time of Disposition: Right upper quadrant abdominal pain Fever Qualifiers: Fever type: unspecified Qualified Code(s): R50.9 - Fever, unspecified - Discharge Dispostion Condition at time of disposition: Fair - Referrals Referrals: Hugh Ho MD [Primary Care Provider] -
[2018-07-27] MEDS ORDERED: morphine SULFATE 4 MG/ML VIAL ONE (18:49)
[2018-07-27] MEDS ORDERED: ACETAMINOPHEN INJECTION 100 ML IVPB ONE (18:58)
[2018-07-27] MEDS ORDERED: PIPERACILLIN/TAZOB 4.5 GM 4.5 GM in DEXTROSE 5%-WATER 100 ML IVPB ONE (19:08)
[2018-07-27 19:15] LABS: EOS % 0.3 % (0-4.5); HEMATOCRIT 38.4 % (32.4-45.2); HEMOGLOBIN 12.6 GM/dl (10.7-15.3); LYMPH % 7.3 % (8-40); MCH 28.5 pg (25.7-33.7); MCHC 32.9 g/dl (32.0-36.0); MEAN CELL VOLUME 86.5 fl (80-96); MEAN PLT VOLUME 9.4 fl (7.5-11.1); MONO % 5.6 % (3.8-10.2); NEUT % 85.8 % (42.8-82.8); PLATELET COUNT 144 K/MM3 (134-434); RBC 4.44 M/mm3 (3.60-5.2); RDW 14.3 % (11.6-15.6); WHITE BLOOD COUNT 6.1 K/mm3 (4.0-10.8)
[2018-07-27 19:25] LABS: ALBUMIN 3.7 g/dl (3.4-5.0); ALK PHOS 152 U/L (45-117); ANION GAP 11 MMOL/L (8-16); BILIRUBIN,TOTAL 2.5 mg/dl (0.2-1); BLOOD UREA NITROGEN 17 mg/dl (7-18); CALCIUM 8.5 mg/dl (8.5-10); CHLORIDE 95 mmol/L (98-107); CO2 22 mmol/L (21-32); CREATININE 0.7 mg/dl (0.55-1.3); GLUCOSE,RANDOM 172 mg/dl (74-106); MAGNESIUM 1.5 mg/dL (1.8-2.4); SGPT/ALT 365 U/L (13-61); SODIUM 128 mmol/L (136-145); TOT PROT 6.8 g/dl (6.4-8.2)
[2018-07-27 19:26] LABS: INR 1.08 (0.82-1.09); PROTHROMBIN TIME (PATIENT) 12.1 SEC (10.2-13.0)
[2018-07-27] MEDS ORDERED: PIPERACILLIN/TAZOBACTAM 4.5 GM VIAL IVPB ONE (19:47)
[2018-07-27 19:55] LABS: SGOT/AST 880 U/L (15-37)
--- NOTE | 2018-07-27 20:06 | PDOC ---
*Physical Exam - Vital Signs Last Vital Signs Temp Pulse Resp BP Pulse Ox 101.7 F H 77 18 163/53 L 99 07/27/18 17:45 07/27/18 17:34 07/27/18 17:34 07/27/18 17:34 07/27/18 17:34 ED Treatment Course - LABORATORY CBC & Chemistry Diagram: 07/27/18 18:45 07/27/18 18:45 - ADDITIONAL ORDERS Additional order review: Laboratory Results 07/27/18 07/27/18 07/27/18 18:45 18:45 18:45 PT with INR 12.1 INR 1.08 Sodium Potassium Chloride Carbon Dioxide Anion Gap BUN Creatinine Creat Clearance w eGFR Random Glucose Calcium Magnesium Total Bilirubin Direct Bilirubin 1.4 H AST ALT Alkaline Phosphatase Creatine Kinase Troponin I < 0.03 Total Protein Albumin 07/27/18 18:45 PT with INR INR Sodium 128 L Potassium 4.0 Chloride 95 L Carbon Dioxide 22 Anion Gap 11 BUN 17 Creatinine 0.7 Creat Clearance w eGFR 79.72 Random Glucose 172 H Calcium 8.5 Magnesium 1.5 L Total Bilirubin 2.5 H Direct Bilirubin AST 880 H ALT 365 H Alkaline Phosphatase 152 H Creatine Kinase 55 Troponin I Total Protein 6.8 Albumin 3.7 07/27/18 18:45 RBC 4.44 MCV 86.5 MCHC 32.9 RDW 14.3 MPV 9.4 Neutrophils % 85.8 H Lymphocytes % 7.3 L Monocytes % 5.6 Eosinophils % 0.3 Basophils % 1.0 - Medications Given in the ED: ED Medications Discontinued Medications Generic Name Dose Route Start Last Admin Trade Name Freq PRN Reason Stop Dose Admin Acetaminophen 1,000 mg 07/27/18 18:28 07/27/18 18:45 Ofirmev Injection - IVPB 07/27/18 18:29 1,000 mg ONCE ONE Administration Sodium Chloride 1,000 mls @ 1,000 mls/hr 07/27/18 18:03 07/27/18 18:30 Normal Saline - IV 07/27/18 19:02 1,000 mls/hr ONCE ONE Administration Morphine Sulfate 2 mg 07/27/18 18:03 07/27/18 19:05 Morphine Injection - IVPUSH 07/27/18 18:04 2 mg ONCE ONE Administration Ondansetron HCl 8 mg 07/27/18 18:03 07/27/18 19:00 Zofran Injection IVPB 07/27/18 18:04 8 mg ONCE ONE Administration Progress Note - Progress Note Progress Note: Care of this patient was transferred to nm from Dr. John at 1900 hrs. This is a 82-year-old female with right upper quadrant epigastric pain. Patient's exam was consistent with probable acute: Cystitis. Patient was given Zosyn IV prior to labs coming back. I will follow-up on the labs and the patient most likely will require admission Patient is LFTs are elevated including her bilirubin in addition to that she has some hyponatremia and elevated glucose. Patient's blood pressure has dropped since she arrived here her heart rate though does remain stable. Patient has received Zosyn. Patient needs emergent ERCP tonight as she has a gallstone blocking her common bile duct with dilation and wall thickening of the gallbladder. Patient family and patient prefer that she go to [facility] instead of the ICU at our institution. [facility] was contacted at [phone] and patient was tentatively accepted by the resident who well discussed with his attending before final acceptance of the patient and transport. 2134: Patient is been accepted for transport to [facility] by a Dr. Sheng Armstrong is arranging a critical care transport for this patient Medical Decision Making - Critical Care Time Total Critical Care Time (minutes): 60 Critical Care Statement: The care of this patient involved high complexity decision making to prevent further life threatening deterioration of the patient 's condition and/or to evaluate & treat vital organ system(s) failure or risk of failure. *DC/Admit/Observation/Transfer Diagnosis at time of Disposition: Right upper quadrant abdominal pain Fever Qualifiers: Fever type: unspecified Qualified Code(s): R50.9 - Fever, unspecified - Discharge Dispostion Disposition: TRANSFER ACUTE CARE/OTHER HOSP Condition at time of disposition: Fair - Referrals Referrals: Hugh Ho MD [Primary Care Provider] - - Patient Instructions - Post Discharge Activity
[2018-07-27 20:21] LABS: VENOUS PC02 39.9 mmHg (41-51); VENOUS PH 7.39 (7.31-7.41); VENOUS PO2 59.2 mmHg (30-40)
[2018-07-27 20:46] LABS: PH,URINE 6.5 (4.5-8); URINE APPEARANCE CLEAR; URINE BILIRUBIN NEGATIVE (NEGATIVE); URINE COLOR YELLOW; URINE GLUCOSE (UA) NEGATIVE (NEGATIVE); URINE KETONE 1+ (NEGATIVE); URINE LEUK ESTERASE NEGATIVE (NEGATIVE); URINE NITRITE NEGATIVE (NEGATIVE); URINE PROTEIN NEGATIVE (NEGATIVE)
[2018-07-27 20:51] LABS: LIPASE 122 U/L (73-393)
[2018-07-27] MEDS ORDERED: diazePAM 5 MG TABLET PO STA (20:52)
[2018-07-27 20:57] LABS: URINE WBC 0-2 (0-5)
[2018-07-27] MEDS ORDERED: SODIUM CHLORIDE 1,000 ML IV SCH (22:00)
[2018-07-27 22:24] VITALS: BP 119/54; PULSE 78; TEMP 97.8
--- NOTE | 2018-07-28 11:02 | EKG ---
Test Reason : Blood Pressure : / mmHG Vent. Rate : 088 BPM Atrial Rate : 088 BPM P-R Int : 144 ms QRS Dur : 072 ms QT Int : 358 ms P-R-T Axes : 069 069 149 degrees QTc Int : 433 ms NORMAL SINUS RHYTHM POSSIBLE LEFT ATRIAL ENLARGEMENT ABNORMAL ECG WHEN COMPARED WITH ECG OF 26-JUN-2016 12:15, VENT. RATE HAS INCREASED BY 29 BPM NONSPECIFIC T WAVE ABNORMALITY NOW EVIDENT IN INFERIOR LEADS T WAVE INVERSION NOW EVIDENT IN ANTEROLATERAL LEADS QT HAS SHORTENED Confirmed by CHANG BOOTH, JOSE MARIA ([id number]) on 07/28/2018 11:02:22 AM Referred By: DR WYNN Confirmed By:JOSE MARIA DOWNING MD
== END 2018-07-27 22:33 | disposition short-term general hospital (02) ==
LOC: SUPCPDRO 17:34 → FER 17:34
PROC: 3E033NZ Introduction of Analgesics, Hypnotics, Sedatives into Peripheral Vein, Percutaneous Approach (ICD-10-PCS; principal; 2018-07-27)
PROC: 3E033GC Introduction of Other Therapeutic Substance into Peripheral Vein, Percutaneous Approach (ICD-10-PCS; 2018-07-27)
PROC: 3E03329 Introduction of Other Anti-infective into Peripheral Vein, Percutaneous Approach (ICD-10-PCS; 2018-07-27)
DX: Z85.3 Personal history of malignant neoplasm of breast (principal); R50.9 Fever, unspecified; Z85.028 Personal history of other malignant neoplasm of stomach; E78.5 Hyperlipidemia, unspecified; I10 Essential (primary) hypertension; R10.11 Right upper quadrant pain
CPT/HCPCS: 36415; 71045-TC-FY; 76705-TC; 80053; 81003; 81015; 82248; 82550; 82803; 83605; 83690; 83735; 84484; 85025; 85610; 86850; 86900; 86901; 87040; 87086; 87186; 93005; 96361; 96365; 96375; 99285-25; J0131; J7030

== ENCOUNTER 2019-12-29 16:16 | Emergency (ER) | payer OTHER, BC ==
[2019-12-29 16:22] VITALS: BP 192/85; PULSE 78; TEMP 98.8; BMI 23.3
[2019-12-29] MEDS ORDERED: ACETAMINOPHEN 325 MG TABLET (FP) PO ONE (16:56)
[2019-12-29] MEDS ORDERED: ACETAMINOPHEN 325 MG TABLET (FP) ONE (17:06)
--- NOTE | 2019-12-29 17:20 | PDOC ---
History of Present Illness - General Chief Complaint: Back Pain Stated Complaint: RIGHT MID BACK PAIN & LATERAL RASH Time Seen by Provider: 12/29/19 16:19 History Source: Patient, Family (Daughter present at bedside. Provided intermittent transation to [facility] as needed.) Exam Limitations: No Limitations - History of Present Illness Initial Comments: 84 y/o female presenting to [facility] complaining of one and a half weeks of pain to the right flank. Denies trauma to the area. Worse with even light touch. Described as sharp. Initially infrequent but becoming more constant. Denies migration, hematuria, unexpected change in urinary frequency, but believes she may have had a slight burn when she voids for the past month. Denies fevers (takes temperature every day, nothing above 98), chest pain, SOB, vomiting, or diarrhea. Pt has a h/o diabetes. Reports home BGMs have ranged in the 120s daily. Past History - Medical History Allergies/Adverse Reactions: Allergies Allergy/AdvReac Type Severity Reaction Status Date / Time No Known Allergies Allergy Verified 07/27/18 17:35 Home Medications: Ambulatory Orders Amlodipine Besylate 2.5 mg PO DAILY 07/27/18 Aspirin [Aspirin EC] 81 mg PO DAILY 07/27/18 Cholecalciferol (Vitamin D3) [Vitamin D3 -] 1,000 unit PO DAILY 07/27/18 Dorzolamide HCl/Timolol Maleat [Cosopt Eye Drops] 1 drop OU BID 07/27/18 Metformin HCl [Glucophage] 500 mg PO DAILY 07/27/18 Valacyclovir HCl [Valacyclovir] 1,000 mg PO TID 7 Days #21 tablet 12/29/19 Anemia: No Asthma: No Cancer: Yes (RT BREAST) Cardiac Disorders: No CVA: No COPD: No CHF: No Dementia: No Diabetes: No GI Disorders: Yes (STOMACH CA, DIVERTICULOSIS HX HPYLORI) Disorders: No HTN: Yes Hypercholesterolemia: Yes Liver Disease: No Seizures: No Thyroid Disease: No - Surgical History Abdominal Surgery: Yes (PARTIAL GASTRECTOMY) Cholecystectomy: Yes GI Surgery: Yes - Reproductive History Is Patient Now?: No - Psycho-Social/Smoking History Smoking Status: No Smoking History: Never smoked Have you smoked in the past 12 months: No Number of Cigarettes Smoked Daily: 0 - Substance Abuse Hx (Audit-C & DAST Scrn) How often the patient has a drink containing alcohol: Never Score: In Men: 4 or > Positive; In Women: 3 or > Positive: 0 Screen Result (Pos requires Nsg. Audit-10AR): Negative In the last yr the pt used illegal drug/Rx for NonMed reason: No Score: Yes response is considered Positive: 0 Screen Result (Positive result requires Nsg. DAST-10): Negative Review of Systems - Review of Systems Able to Perform ROS?: Yes Comments:: 10 point review of systems completed. All systems negative except as noted above. *Physical Exam - Vital Signs Last Vital Signs Temp Pulse Resp BP Pulse Ox 98.8 F 78 15 192/85 H 99 12/29/19 16:18 12/29/19 16:18 12/29/19 16:18 12/29/19 16:18 12/29/19 16:18 - Physical Exam Vital signs and nursing notes reviewed. Constitutional- Well-developed, well-nourished elderly adult female in no acute distress or obvious discomfort. Observed walking into the department unassisted without difficulty. Stood unprompted to have her flank examined. Head- Normocephalic. No obvious external signs of trauma. Eyes- Sclerae white. Ears- Hearing impaired (baseline per daughter). Neck- Supple, trachea is midline. Cardiovascular / Chest- Regular rate and regular rhythm. No murmur, rubs, clicks, or gallops. Peripheral pulses- radial pulses full. Respiratory- Breathing unlabored. Speaking in multi-word responses without pausing. Equal chest rise and fall. Clear to auscultation bilaterally. No stridor, no wheezing, no rhonchi. Gastrointestinal- abdomen is soft, non-tender, non-distended. No hepatosplenomegaly. No pulsatile masses. Large old appearing linear midline post surgical scar. Neuro- Alert and oriented x4. Moving all four extremities spontaneously. No facial asymmetry. No slurred speech. Back / R Flank- Two areas of clustered lesions estimated to be within the same dermatome. Lesions are raised with erythematous base. No crusting or skin breakdown. Area is tender to light touch. Does not cross midline. No midline spinal tenderness. Skin- Globally, skin is warm and dry. - R and L CVA tenderness. Psych- Affect- appropriate. Mood- normal. Speech was non-labored, non- pressured. ED Treatment Course - ADDITIONAL ORDERS Additional order review: Laboratory Results 12/29/19 16:44 Urine Color Yellow Urine Appearance Clear Urine pH 7.0 Urine Protein Negative Urine Glucose (UA) Negative Urine Ketones Negative Urine Blood Trace-intact Urine Nitrite Negative Urine Bilirubin Negative Urine Urobilinogen 0.2 Ur Leukocyte Esterase Negative Urine RBC 2-5 Urine WBC 0-2 - Medications Given in the ED: ED Medications Discontinued Medications Generic Name Dose Route Start Last Admin Trade Name Chioma PRN Reason Stop Dose Admin Acetaminophen 650 mg 12/29/19 16:56 12/29/19 17:09 Tylenol - PO 12/29/19 16:57 650 mg ONCE ONE Administration Medical Decision Making - Medical Decision Making 84 y/o female with right flank pain and dermatomal rash concerning for herpes zoster dermatitis. Does not cross midline or extend into multiple dermatomes. Ordered UA given dysuria though low suspicion for acute cystitis. Ordered Tylen ol for pain relief. Reviewed UA. Noted trace-intact blood with 2-5 RBC. Low suspicion for clinical relevance. Discussed with daughter and pt. Encouraged f/u w/ PCP. Prescribed Valacyclovir. Encouraged OTC analgesia. Pt and daughter expressed verbal understanding and agreement with plan to discharge home with clinic follow up. Case discussed with ED Attending Dr. Booker. Raza Daniels M.D., PGY3 Emergency Medicine Residency Discharge - Discharge Information Problems reviewed: Yes Clinical Impression/Diagnosis: Herpes zoster dermatitis Condition: Good Disposition: HOME - Admission No - Additional Discharge Information Prescriptions: Valacyclovir HCl [Valacyclovir] 1,000 mg PO TID 7 Days #21 tablet - Follow up/Referral Referrals: Hugh Ho MD [Primary Care Provider] - - Patient Discharge Instructions Patient Printed Discharge Instructions: DI for Shingles, Valacyclovir Additional Instructions: You were seen today for right flank pain. Your exam is concerning for Shings (Herpes Zoster Dermatitis). It will continue to be painful for the next several days to possibly weeks. Keep the area clean and covered as much as possible. I have attached a packet with more detailed instructions on care. I sent a prescription for a medication called Valacyclovir to your pharmacy. Take as directed on the package insert. You can take over the counter Tylenol (Acetaminophen) for pain. Start with taking 400mg every 6 hours. If the pain becomes worse then add Advil/Motrin (Ibuprofen) between doses of Tylenol (Acetaminophen). An example schedule is as follows: 12:00 pm 400mg Ibuprofen/Advil/Motrin 3:00 pm 1000mg Tylenol 6:00 pm 400mg Ibuprofen/Advil/Motrin 9:00 pm 1000mg Tylenol 12:00 am 400mg Ibuprofen/Advil/Motrin etc. Follow up with your primary care physician within the next few weeks to make sure you are healing. Return to the emergency room for new or worsening symptoms. Print Language: CZECH - Post Discharge Activity
--- NOTE | 2019-12-29 18:12 | PDOC ---
Attending Attestation - Resident Resident Name: Raza Daniels - ED Attending Attestation I have performed the following: I have examined & evaluated the patient, The case was reviewed & discussed with the resident, I agree w/resident's findings & plan, Exceptions are as noted - HPI HPI: 12/29/19 18:12 Painful rash to right mid back x1 week - Physicial Exam PE: 12/29/19 18:12 Vitals: Triage Vital signs reviewed General Appearance: No acute distress, well nourished well developed, Head: Atraumatic, Eyes: Pupils equal reactive round, extraocular movement intact Cardiac: Regular rate and rhythym, no murmurs, no rubs, no gallops, Lungs: Clear to auscultation bilateral, good air movement bilaterally, Abdomen: Soft, non distended, normal bowel sounds, non tender to palpation Extremities: Full range of motion to all extremities, no cyanosis, clubbing, or edema Skin: Warm and dry, Vesicular lesion T11 dermatome Neuro: AOX3; cranial Nerves 2-12 grossly intact, strength intact to all extremities, sensation intact to all extremities, gait normal Psych: Normal mood, normal affect - Medical Decision Making 12/29/19 18:18 Well-appearing no apparent distress history examination consistent with zoster patient also complains of mild urinary symptoms but urinalysis negative except for trace blood which she was instructed to follow-up with her PCP Started on Valtrex and pain medication she will follow-up with her PCP next week Findings, need for follow-up and strict return instructions discussed with patient. Discharge - Discharge Information Problems reviewed: Yes Clinical Impression/Diagnosis: Herpes zoster dermatitis Condition: Good Disposition: HOME - Additional Discharge Information Prescriptions: Valacyclovir HCl [Valacyclovir] 1,000 mg PO TID 7 Days #21 tablet - Follow up/Referral Referrals: Hugh Ho MD [Primary Care Provider] - - Patient Discharge Instructions Patient Printed Discharge Instructions: DI for Shingles, Valacyclovir Additional Instructions: You were seen today for right flank pain. Your exam is concerning for Shings (Herpes Zoster Dermatitis). It will continue to be painful for the next several days to possibly weeks. Keep the area clean and covered as much as possible. I have attached a packet with more detailed instructions on care. I sent a prescription for a medication called Valacyclovir to your pharmacy. Take as directed on the package insert. You can take over the counter Tylenol (Acetaminophen) for pain. Start with ta [place]in 400mg every 6 hours. If the pain becomes worse then add Advil/Motrin (Ibuprofen) between doses of Tylenol (Acetaminophen). An example schedule is as follows: 12:00 pm 400mg Ibuprofen/Advil/Motrin 3:00 pm 1000mg Tylenol 6:00 pm 400mg Ibuprofen/Advil/Motrin 9:00 pm 1000mg Tylenol 12:00 am 400mg Ibuprofen/Advil/Motrin etc. Follow up with your primary care physician within the next few weeks to make sure you are healing. Return to the emergency room for new or worsening symptoms. Print Language: ROMANSH - Post Discharge Activity
== END 2019-12-29 17:32 | disposition home or self-care (01) ==
LOC: FER 16:16 → SUPCPDRO 16:16 → FER 17:32
DX: B02.9 Zoster without complications (principal)
CPT/HCPCS: 81003; 81015; 87086; 87186; 99284-25

== ENCOUNTER 2020-12-24 13:40 | Emergency (ER) | payer BC, OTHER ==
[2020-12-24 13:49] VITALS: BP 197/89; PULSE 75; TEMP 98.6; BMI 24.5
[2020-12-24] MEDS ORDERED: ACETAMINOPHEN 500 MG TABLET (FP) PO ONE (17:02)
[2020-12-24] MEDS ORDERED: ACETAMINOPHEN 500 MG TABLET (FP) ONE (17:11)
== END 2020-12-24 17:16 | disposition home or self-care (01) ==
LOC: FER 13:40
DX: S99.912A Unspecified injury of left ankle, initial encounter (principal); V03.00XA Pedestrian on foot injured in collision with car, pick-up truck or van in nontraffic accident, initial encounter
CPT/HCPCS: 70450-TC; 72125-TC; 73030-TC-LT-FY; 73030-TC-RT-FY; 73610-TC-LT-FY; 73630-TC-LT; 99285-25

== ENCOUNTER 2022-04-28 15:36 | Emergency (ER) | payer OTHER, BC ==
[2022-04-28 15:51] VITALS: BP 152/69; PULSE 76; RESP 18; TEMP 98; BMI 23.0
== END 2022-04-28 17:20 | disposition home or self-care (01) ==
LOC: FER 15:36
DX: S09.90XA Unspecified injury of head, initial encounter (principal); W22.8XXA Striking against or struck by other objects, initial encounter
CPT/HCPCS: 70450-TC; 72125-TC; 99284-25